=== PATIENT | female | born 1970 | race Caucasian/White ===

== ENCOUNTER 2019-10-13 05:38 | Emergency (ER) | payer BC ==
[~2019-10-13] VITALS: Ht 170.2 cm; Wt 59.0 kg
[2019-10-13 05:40] VITALS: BP_SYST 117
[2019-10-13] MEDS ORDERED: SULFAMETHOXAZOLE/TRIMETHOPR DS 1 TABLET PO ONE (06:15)
[2019-10-13] MEDS ORDERED: PHENAZOPYRIDINE HCL 100 MG TABLET PO ONE (06:15)
[2019-10-13 06:24] VITALS: BP_SYST 117
== END 2019-10-13 06:20 | disposition home or self-care (01) ==
LOC: SED 05:38
DX: N39.0 Urinary tract infection, site not specified (principal); R10.30 Lower abdominal pain, unspecified; R30.9 Painful micturition, unspecified; Z90.710 Acquired absence of both cervix and uterus
CPT/HCPCS: 99283

== ENCOUNTER 2019-12-29 01:30 | Emergency (ER) | payer BC ==
[~2019-12-29] VITALS: Ht 170.2 cm; Wt 59.0 kg
[2019-12-29 01:30] VITALS: BP_SYST 101
[2019-12-29] MEDS ORDERED: NACL 0.9% 2,000 ML IV ONE (01:50)
[2019-12-29] MEDS ORDERED: KETOROLAC TROMETHAMINE 30 MG VIAL IVP ONE ×2 (02:00→04:00)
[2019-12-29 02:15] LABS: BILIRUBIN,URINE NEGATIVE (NEGATIVE); BLOOD, URINE NEGATIVE (NEGATIVE); CLARITY/URINE CLEAR (CLEAR); COLOR,URINE YELLOW (YELLOW); GLUCOSE,URINE NEGATIVE (NEGATIVE); KETONES,URINE 1+ (NEGATIVE); LEUKOCYTE ESTERASE ,URINE NEGATIVE (NEGATIVE); NITRITE, URINE NEGATIVE (NEGATIVE); PROTEIN URINE NEGATIVE (NEGATIVE); UROBILINOGEN,URINE 0.2 (0.2-1.0)
[2019-12-29 02:33] LABS: BASOPHILS % (AUTO) 0.1 % (0.0-2.0); EOSINOPHILS # (AUTO) 0.1 K/uL (0.0-0.4); EOSINOPHILS % (AUTO) 1.1 % (0.0-4.0); HEMATOCRIT 42.5 % (36-48); HEMOGLOBIN 14.5 g/dL (12.0-16.0); LYMPHOCYTES # (AUTO) 0.4 K/uL (1.0-5.5); LYMPHOCYTES % (AUTO) 5.3 % (20.5-51.5); MEAN CORPUSCULAR HEMOGLOBIN 33 pg (27-31); MEAN CORPUSCULAR HGB CONC 34 % (32-36); MEAN CORPUSCULAR VOLUME 96 fL (79.0-98.0); MONOCYTES # (AUTO) 0.3 K/uL (0.0-1.0); MONOCYTES % (AUTO) 4.3 % (1.7-9.3); NEUTROPHILS # (AUTO) 6.3 K/uL (1.8-7.7); NEUTROPHILS % (AUTO) 89.2 % (40.0-70.0); PLATELET COUNT (AUTO) 247 K/uL (130-430); RED BLOOD CELL COUNT(AUTO) 4.41 MIL/uL (4.2-6.2); RED CELL DISTRIBUTION WIDTH 13.6 % (9.0-15.0); WHITE BLOOD COUNT (AUTO) 7.1 K/uL (4.8-10.8)
[2019-12-29 02:42] LABS: CALCIUM 9.1 mg/dL (8.4-11.0); CREATININE 0.88 mg/dL (0.55-1.30); POTASSIUM 3.4 mmol/L (3.5-5.1)
[2019-12-29] MEDS ORDERED: ACETAMINOPHEN 500 MG TABLET PO ONE (02:45)
[2019-12-29] MEDS ORDERED: PHENAZOPYRIDINE HCL 100 MG TABLET PO ONE (02:45)
[2019-12-29 02:46] LABS: INR 1.1 (0.8-1.2)
[2019-12-29 02:47] LABS: ALBUMIN 4.1 g/dL (3.4-4.8); TOTAL BILIRUBIN 1.2 mg/dL (0.0-1.0)
[2019-12-29] MEDS ORDERED: cefTRIAXone 1 GM in D5W 50 ML IV ONE (04:00)
[2019-12-29] MEDS ORDERED: cefTRIAXone 1 GM VIAL ONE (04:23)
[2019-12-29 04:45] VITALS: BP_SYST 127
== END 2019-12-29 04:45 | disposition home or self-care (01) ==
LOC: SED 01:30
DX: N39.0 Urinary tract infection, site not specified (principal); R51 Headache; E86.0 Dehydration; Z90.710 Acquired absence of both cervix and uterus
CPT/HCPCS: 36415; 80053; 81003; 81025; 83605; 85025; 85610; 85730; 87040; 87086; 96361; 96365; 96375; 99284; J0696; J1885; J7030